=== PATIENT | female | born 1960 | race Caucasian/White ===

== ENCOUNTER → 2019-06-18 | Outpatient (REF) | payer OTHER | LOC: M LAB LCGH 12:44 | PROVIDERS: ATTEND Surgery | DX: M99.87 Other biomechanical lesions of upper extremity (principal); M99.86 Other biomechanical lesions of lower extremity ==

== ENCOUNTER → 2020-04-07 | Outpatient (REF) | payer OTHER | LOC: M LAB REF 17:32 | PROVIDERS: ATTEND Physician Assistant | DX: D48.5 Neoplasm of uncertain behavior of skin (principal); L73.9 Follicular disorder, unspecified ==

== ENCOUNTER → 2023-03-28 | Outpatient (REF) | payer OTHER | LOC: M SFHCDERM 17:48 | PROVIDERS: ATTEND Physician Assistant | DX: D23.5 Other benign neoplasm of skin of trunk (principal) ==

== ENCOUNTER → 2023-06-14 | Outpatient (REF) | payer OTHER | LOC: M SFHCDERM 13:53 | PROVIDERS: ATTEND Physician Assistant | DX: D23.9 Other benign neoplasm of skin, unspecified (principal); L72.0 Epidermal cyst ==

== ENCOUNTER → 2024-02-15 | Outpatient (REF) | payer OTHER | LOC: M SFHCDERM 17:24 | PROVIDERS: ATTEND Physician Assistant | DX: D49.2 Neoplasm of unspecified behavior of bone, soft tissue, and skin (principal) ==